=== PATIENT | male | born 1985 | race African-American/Black ===

== ENCOUNTER 2016-10-02 20:23 | Emergency (ER) ==
[2016-10-02] MEDS ORDERED: ZOFRAN IM ONE (20:56)
[2016-10-02] MEDS ORDERED: DILAUDID IM ONE (20:56)
--- NOTE | 2016-10-02 20:59 | PROVIDER DOCUMENTATION ---
HPI-Male Problem - General Chief Complaint: Male Stated Complaint: SKIN DETACHED FROM PENIS Time Seen by Provider: 10/02/16 20:42 Source: patient (Patient is a 31 year old black male with history of htn who accidentally cut his foreskin of his penis when his female partner who was wearing braces performed oral sex just 15 minutes prior to arrival. Last tetanus was over 5 years ago. Patient was cut by partners braces. Patient complains of 8/10 pain over affected area of foreskin. Patient became nauseated and vomited due to pain.) Allergies/Adverse Reactions: Patient Allergies Allergy/AdvReac Type Severity Reaction Status Date / Time Penicillins AdvReac FLUSHING Verified 10/02/16 20:38 Home Medications: Home Medication List Medication Instructions Recorded Confirmed Last Taken Type Clindamycin HCl 300 mg PO TID #30 capsule 10/02/16 Unknown Rx Hydrocodone/APAP 5 mg/325 mg 1 tab PO Q6H PRN PRN #14 tablet 10/02/16 Unknown Rx [Jewett-5] Review of Systems - Adult - REVIEW OF SYSTEMS - ADULT Constitutional: denies: chills, fever Eyes: reports: no symptoms reported Ears, Nose, Mouth & Throat: reports: no symptoms reported Cardiovascular: reports: no symptoms reported Respiratory: reports: no symptoms reported Gastrointestinal: reports: see HPI, nausea, vomiting Genitourinary: reports: see HPI Musculoskeletal: reports: no symptoms reported Integumentary: reports: no symptoms reported Neurological: reports: no symptoms reported Psychiatric: reports: no symptoms reported Endocrine: reports: no symptoms reported Hematologic/Lymphatic: reports: no symptoms reported Allergic/Immunologic: reports: no symptoms reported All Other Systems: Reviewed and Negative Past History - Adult - PAST MEDICAL HISTORY-ADULT Review of Records: reports: Old Records Reviewed, Nursing Assessment Review, Medications Reviewed, Social history reviewed & non-contributory. Major Childhood Illnesses: reports: denies history Cardiovascular: reports: denies history Respiratory: reports: denies history Gastrointestinal: reports: denies history Obstetrical/Gynecological: reports: denies history Genitourinary: reports: denies history Musculoskeletal: reports: denies history Neurological: reports: denies history Psychiatric: reports: anxiety, depression Endocrine/Immune: reports: denies history Other Conditions: reports: denies history - PRIOR SURGERIES/PROCEDURES Surgical/Procedure History: reports: reviewed, not pertinent - PRIOR HOSPITALIZATIONS Prior Hospitalizations: reports: for other non-related - IMMUNIZATION STATUS Childhood Immunizations: See Nurse Assessment Flu Vaccine: See Nurse Assessment - FAMILY HISTORY Family History: reviewed, not pertinent Physical Exam-General - CONSTITUTIONAL General Appearance: alert, moderate distress, other (in pain) - EYES Eyes: other (clear) - HEAD, EARS, NOSE, MOUTH & THROAT HENMT: moist mucous membranes, normal ENT inspection - NECK Neck: supple - RESPIRATORY Respiratory: lungs clear - CARDIOVASCULAR Cardiovascular: regular rate, rhythm - GASTROINTESTINAL (ABDOMEN) Abdominal Exam: non tender, soft - GENITOURINARY Male Genitalia: other (abrasion over distal foreskin at 6 oclock position with skin tag, no active bleeding, no urethral injury) Rectal Exam: deferred - MUSCULOSKELETAL Back Exam: normal inspection Extremity: normal range of motion - SKIN Integumentary: normal color, normal turgor - NEUROLOGIC Neurologic: grossly normal - PSYCHIATRIC Psych/Mental Status: anxious Departure - Departure Time of Disposition Order: 21:30 DIAGNOSIS: Uncontrolled hypertension Injury to scrotum, penis, or foreskin Qualifiers: Encounter type: initial encounter Qualified Code(s): S39.848A - Other specified injuries of external genitals, initial encounter Abrasion of penis, initial encounter Qualifiers: Encounter type: initial encounter Qualified Code(s): S30.812A - Abrasion of penis, initial encounter Disposition: HOME 01 Certified Medical Emergency: Emergent Condition: Stable Additional Instructions: followup with urologist next week, no intercourse until healed,recheck blood pressure this week Prescriptions: Clindamycin HCl 300 mg PO TID #30 capsule Hydrocodone/APAP 5 mg/325 mg [Jewett-5] 1 tab PO Q6H PRN PRN #14 tablet PRN Reason: Pain Referrals: None,PCP [Primary Care Provider] - Garth Hill MD [STAFF PHYSICIAN] -
[2016-10-02] MEDS ORDERED: CLEOCIN PO ONE (21:00)
[2016-10-02] MEDS ORDERED: BOOSTRIX VACCINE IM ONE (21:03)
[2016-10-02] MEDS ORDERED: DILAUDID ONE (21:04)
[2016-10-02] MEDS ORDERED: BOOSTRIX VACCINE ONE (21:05)
[2016-10-02 21:37] VITALS: BP 141/107
== END 2016-10-02 21:35 | disposition home or self-care (01) ==
LOC: P.ED 20:23
DX: S30.812A Abrasion of penis, initial encounter (principal); I10 Essential (primary) hypertension; N48.89 Other specified disorders of penis; R11.2 Nausea with vomiting, unspecified; Z23 Encounter for immunization; W45.8XXA Other foreign body or object entering through skin, initial encounter
CPT/HCPCS: 90471; 90715; 96372; J1170; J2405

== ENCOUNTER 2016-10-25 20:33 | Emergency (ER) ==
[2016-10-25 21:26] LABS: URINE SOURCE CLEAN CATCH
[2016-10-25 21:26] LABS: MANUAL DIFF NEEDED? NO
[2016-10-25 21:30] LABS: BASO% 0.1 % (0.0-0.8); EOS# 0.15 X1000 (0.0-0.7); HEMATOCRIT 44.8 % (42.0-52.0); HEMOGLOBIN 15.7 g/dL (14.0-18.0); IMM GRAN# 0.01 X1000 (0.0-0.04); IMM GRAN% 0.1 % (0.0-0.5); LYMPH# 1.92 X1000 (1.2-3.4); LYMPH% 25.2 % (20.5-51.1); MCH 30.4 PG (27-31); MCV 86.7 FL (81-99); MONO# 0.55 X1000 (0.11-0.59); MONO% 7.2 % (1.7-9.3); MPV 10.6 FL (7.4-10.4); NEUT% 65.4 % (42.2-75.2); PLT 209 X1000 (130-400); RBC 5.17 XMIL (4.7-6.1)
[2016-10-25 21:48] LABS: UR AMPHETAMINES QUAL NONE DETECTED (NONE DETECT); UR BARBITUATES QUAL NONE DETECTED (NONE DETECT); UR BENZODIAZEPIN QUAL NONE DETECTED (NONE DETECT); UR CANNABINOIDS QUAL NONE DETECTED (NONE DETECT); UR COCAINE QUAL NONE DETECTED (NONE DETECT); UR MDMA QUAL NONE DETECTED (NONE DETECT); UR METHADONE QUAL NONE DETECTED (NONE DETECT); UR METHAMPHETAMINE QUAL NONE DETECTED (NONE DETECT); UR OPIATES QUAL NONE DETECTED (NONE DETECT); UR OXYCODONE QUAL NONE DETECTED (NONE DETECT); UR PCP QUAL NONE DETECTED (NONE DETECT); UR TCA QUAL NONE DETECTED (NONE DETECT)
[2016-10-25 21:57] LABS: AGAP 12; ALBUMIN 4.3 g/dL (3.5-5.0); ALKALINE PHOSPHATASE 62 U/L (32-122); BUN 11 mg/dL (8-22); CALCIUM 9.3 mg/dL (8.8-10.2); CHLORIDE 103 mmol/L (98-107); COSMO 280; GOT 41 U/L (10-34); GPT 29 U/L (10-44); SODIUM 140 mmol/L (136-145); TCO2 26 mmol/L (25-35); TOTAL PROTEIN 7.6 g/dL (6.3-8.3)
[2016-10-25 21:58] LABS: ACETAMINOPHEN < 1.2 ug/mL (10-30)
[2016-10-25 21:59] LABS: BILIRUBIN URINE NEGATIVE (NEGATIVE); BLOOD URINE TRACE (NEGATIVE); CLARITY CLEAR (CLEAR); COLOR YELLOW; GLUCOSE URINE NEGATIVE (NEGATIVE); LEUKOCYTES URINE TRACE (NEGATIVE); NITRITE URINE NEGATIVE (NEGATIVE); PH URINE 6.5; PROTEIN URINE 2+(100 mg/dL) mg/dL (NEGATIVE); SP GRAVITY URINE 1.015; UROBILINOGEN URINE NORMAL
--- NOTE | 2016-10-25 21:59 | PROVIDER DOCUMENTATION ---
HPI-Psychological Disorder - General Source: patient - History of Present Illness-Psych Onset/Duration: reports: 3 days ago Timing: reports: still present Severity: reports: moderate Situational problems related to:: reports: other (DEPRESSION) Psychiatric Complaints: reports: depressed, homicidal thoughts, insomnia, irritability, suicidal ideation Substance Use: reports: none presently/history of abuse, alcohol (PRIOR TO MEDICATION HE DRANK DAILY BUT HAS STOPPED ETOH BC IT CAUSES HIM TO VOMIT NOW), marijuana Previous psych related hospitalizations?: No Patient arrived by:: private car Similar Symptoms Previously?: No Recently seen or treated by another doctor?: No - Suicidal Ideation Suicide Risk Assessment: male sex, age <19, depressed, drug or ETOH abuse, no social supports Clinician's estimation of suicide risk?: uncertain risk Suicidal Attempt Method: reports: Other (UNK) <Dianna Feldman - Last Filed: 10/26/16 00:02> <Leonel Campuzano - Last Filed: 10/26/16 00:13> - General Chief Complaint: Psych Stated Complaint: PSYCH EVAL Time Seen by Provider: 10/25/16 21:48 Allergies/Adverse Reactions: Patient Allergies Allergy/AdvReac Type Severity Reaction Status Date / Time Penicillins AdvReac FLUSHING Verified 10/02/16 20:38 Home Medications: Home Medication List Medication Instructions Recorded Confirmed Last Taken Type Fluoxetine HCl [Prozac] 10 mg PO DAILY 10/25/16 10/25/16 Unknown History Fluoxetine HCl [Prozac] 20 mg PO QAM #30 capsule 10/25/16 Unknown Rx Trazodone [Desyrel] 50 mg PO QHS #30 tablet 10/25/16 Unknown Rx - History of Present Illness-Psych Nature of Presenting Problem: PT IS A 31YOM PRESENTING TO THE ED C/O SI AND HI. PT STATES HE STARTED BACK ON PROZAC 10MG APPROXIMATELY 3 WEEKS AGO FOR DEPRESSION. PAST 3 DAYS HE HAS HAD INCREASED INSOMNIA AND SI AND HI WITHOUT ANY REMORSE FOR HIS THOUGHTS. HE STATES "HE FEELS ODD." NO OTHER COMPLAINTS NOTED AT THIS TIME (Dianna Feldman) Review of Systems - Adult - REVIEW OF SYSTEMS - ADULT Constitutional: reports: no symptoms reported Eyes: reports: see HPI, redness. denies: eye pain Ears, Nose, Mouth & Throat: reports: no symptoms reported Cardiovascular: reports: no symptoms reported Respiratory: reports: no symptoms reported Gastrointestinal: reports: no symptoms reported Genitourinary: reports: no symptoms reported Musculoskeletal: reports: no symptoms reported Integumentary: reports: no symptoms reported Neurological: reports: no symptoms reported Psychiatric: reports: see HPI, anti-depressant use, depression, emotional problems, insomnia, suicidal thoughts Endocrine: reports: no symptoms reported Hematologic/Lymphatic: reports: no symptoms reported Allergic/Immunologic: reports: no symptoms reported All Other Systems: Reviewed and Negative <Dianna Feldman - Last Filed: 10/26/16 00:02> Past History - Adult - PAST MEDICAL HISTORY-ADULT Review of Records: reports: Old Records Reviewed, Nursing Assessment Review, Medications Reviewed, Social history reviewed & non-contributory. Major Childhood Illnesses: reports: denies history Cardiovascular: reports: denies history Respiratory: reports: denies history Gastrointestinal: reports: denies history Obstetrical/Gynecological: reports: denies history Genitourinary: reports: denies history Musculoskeletal: reports: denies history Neurological: reports: denies history Psychiatric: reports: anxiety, depression Endocrine/Immune: reports: denies history Other Conditions: reports: denies history - PRIOR SURGERIES/PROCEDURES Surgical/Procedure History: reports: reviewed, not pertinent - PRIOR HOSPITALIZATIONS Prior Hospitalizations: reports: for other non-related - IMMUNIZATION STATUS Childhood Immunizations: See Nurse Assessment Flu Vaccine: See Nurse Assessment - FAMILY HISTORY Family History: reviewed, not pertinent - SOCIAL HISTORY Smoking: denies, non-smoker Substance Use: none presently/history of abuse, alcohol, marijuana Alcohol Use Frequency: once a month Living Situation: alone <Dianna Feldman - Last Filed: 10/26/16 00:02> Physical Exam-Psych Focus - Physical Exam-Psych Initial Vital Signs Reviewed: Yes Appearance: appropriate appearance, neat, alert, moderate distress. negative: appropriate insight, no apparent distress, no memory impairment, denies illness Neurological: alert, calm, cycle consultant II-XII nml as tested, oriented x 3, depressed affect, flat. negative: normal mood/affect Behavior/Eye Contact/Speech: cooperative, good eye contact, normal speech Thoughts/Hallucinations: negative: normal thought pattern, no apparent hallucination, auditory hallucinations, delusions, tactile hallucinations, visual hallucinations HENMT: normocephalic/atraumatic, moist mucous membranes, normal ENT inspection, TMs normal, pharynx normal Neck: non-tender, full range of motion, supple, normal inspection Respiratory: chest non-tender, lungs clear, normal breath sounds, no pleuratic chest pain, no respiratory distress, no accessory muscle use Cardiovascular: normal peripheral pulses, regular rate, rhythm, no edema, no gallop, no JVD, no murmur Abdominal Exam: normal bowel sounds, non tender, soft, no organomegaly, no pulsatile mass Lymphatic: no adenopathy Back Exam: normal inspection, no CVA tenderness, no vertebral tenderness Extremity: normal range of motion, non-tender, normal gait, normal inspection, no pedal edema, no calf tenderness, normal capillary refill, pelvis stable Integumentary: normal color, normal turgor, warm/dry <Dianna Feldman - Last Filed: 10/26/16 00:02> Progress - PSYCHIATRIC Medically clear for psych eval and/or transfer to [facility].: Yes ([facility] ADVISED FOR PT TO SEEK INPATIENT TREATMENT AND PT HAS DECLINED STATING ) <Dianna Feldman - Last Filed: 10/26/16 00:02> <Leonel Campuzano - Last Filed: 10/26/16 00:13> - PLAN OF CARE/RESULTS Progress/Plan/Lab Results: Laboratory Tests 10/25/16 10/25/16 10/25/16 21:12 21:12 21:20 WBC RBC Hgb Hct MCV MCH MCHC RDW Std Deviation Plt Count MPV Immature Gran % (Auto) Neut % (Auto) Lymph % (Auto) [place] % (Auto) Eos % (Auto) Baso % (Auto) Immature Gran # (Auto) Neut # (Auto) Lymph # (Auto) [place] # (Auto) Eos # (Auto) Baso # (Auto) Sodium 140 Potassium 4.0 Chloride 103 Carbon Dioxide 26 Anion Gap 12 BUN 11 Creatinine 1.1 Estimated GFR/1.73 m2 > 60 BUN/Creatinine Ratio 10 Glucose 112 H Calculated Osmolality 280 Calcium 9.3 Total Bilirubin 0.40 AST 41 H ALT 29 Alkaline Phosphatase 62 Total Protein 7.6 Albumin 4.3 Globulin 3.0 Albumin/Globulin Ratio 1.0 TSH Free T4 Urine Source CLEAN CATCH Urine Color YELLOW Urine Clarity CLEAR Urine pH 6.5 Ur Specific [place] 1.015 Urine Protein 2+(100 mg/dL) A Urine Ketones TRACE Urine Blood TRACE Urine Nitrite NEGATIVE Urine Bilirubin NEGATIVE Urine Urobilinogen NORMAL Urine Microscopic RBC <10 Urine WBC TRACE A Urine Microscopic WBC <10 Ur Epithelial Cells <10 Urine Bacteria 2+ Urine Glucose NEGATIVE Salicylates Urine Opiates Screen NONE DETECTED Ur Oxycodone Screen NONE DETECTED Urine Methadone Screen NONE DETECTED Acetaminophen Ur Barbituates Screen NONE DETECTED Ur Tricyclics Screen NONE DETECTED Ur Phencyclidine Scrn NONE DETECTED Ur Amphetamines Screen NONE DETECTED U Methamphetamines Scrn NONE DETECTED Urine MDMA Screen NONE DETECTED U Benzodiazepines Scrn NONE DETECTED Urine Cocaine Screen NONE DETECTED U Cannabinoids Screen NONE DETECTED Plasma/Serum Ethyl Alc 10/25/16 10/25/16 10/25/16 21:20 21:20 21:20 WBC 7.62 RBC 5.17 Hgb 15.7 Hct 44.8 MCV 86.7 MCH 30.4 MCHC 35.0 RDW Std Deviation 14.2 Plt Count 209 MPV 10.6 H Immature Gran % (Auto) 0.1 Neut % (Auto) 65.4 Lymph % (Auto) 25.2 [place] % (Auto) 7.2 Eos % (Auto) 2.0 Baso % (Auto) 0.1 Immature Gran # (Auto) 0.01 Neut # (Auto) 4.98 Lymph # (Auto) 1.92 [place] # (Auto) 0.55 Eos # (Auto) 0.15 Baso # (Auto) 0.01 Sodium Potassium Chloride Carbon Dioxide Anion Gap BUN Creatinine Estimated GFR/1.73 m2 BUN/Creatinine Ratio Glucose Calculated Osmolality Calcium Total Bilirubin AST ALT Alkaline Phosphatase Total Protein Albumin Globulin Albumin/Globulin Ratio TSH 1.79 Free T4 1.08 Urine Source Urine Color Urine Clarity Urine pH Ur Specific [place] Urine Protein Urine Ketones Urine Blood Urine Nitrite Urine Bilirubin Urine Urobilinogen Urine Microscopic RBC Urine WBC Urine Microscopic WBC Ur Epithelial Cells Urine Bacteria Urine Glucose Salicylates Urine Opiates Screen Ur Oxycodone Screen Urine Methadone Screen Acetaminophen Ur Barbituates Screen Ur Tricyclics Screen Ur Phencyclidine Scrn Ur Amphetamines Screen U Methamphetamines Scrn Urine MDMA Screen U Benzodiazepines Scrn Urine Cocaine Screen U Cannabinoids Screen Plasma/Serum Ethyl Alc 10/25/16 21:20 WBC RBC Hgb Hct MCV MCH MCHC RDW Std Deviation Plt Count MPV Immature Gran % (Auto) Neut % (Auto) Lymph % (Auto) [place] % (Auto) Eos % (Auto) Baso % (Auto) Immature Gran # (Auto) Neut # (Auto) Lymph # (Auto) [place] # (Auto) Eos # (Auto) Baso # (Auto) Sodium Potassium Chloride Carbon Dioxide Anion Gap BUN Creatinine Estimated GFR/1.73 m2 BUN/Creatinine Ratio Glucose Calculated Osmolality Calcium Total Bilirubin AST ALT Alkaline Phosphatase Total Protein Albumin Globulin Albumin/Globulin Ratio TSH Free T4 Urine Source Urine Color Urine Clarity Urine pH Ur Specific [place] Urine Protein Urine Ketones Urine Blood Urine Nitrite Urine Bilirubin Urine Urobilinogen Urine Microscopic RBC Urine WBC Urine Microscopic WBC Ur Epithelial Cells Urine Bacteria Urine Glucose Salicylates < 3.00 L Urine Opiates Screen Ur Oxycodone Screen Urine Methadone Screen Acetaminophen < 1.2 L Ur Barbituates Screen Ur Tricyclics Screen Ur Phencyclidine Scrn Ur Amphetamines Screen U Methamphetamines Scrn Urine MDMA Screen U Benzodiazepines Scrn Urine Cocaine Screen U Cannabinoids Screen Plasma/Serum Ethyl Alc Orders Category Date Time Status ACETAMINOPHEN [TDM] Stat Lab 10/25/16 21:20 Completed ALCOHOL BLOOD Stat Lab 10/25/16 21:20 Completed CBC WITH ELECTRONIC DIFF [HEME] Stat Lab 10/25/16 21:20 Completed COMPREHENSIVE METABOLIC PANEL [CHEM] Stat Lab 10/25/16 21:20 Completed FREE T4 Stat Lab 10/25/16 21:20 Results SALICYLATES [TDM] Stat Lab 10/25/16 21:20 Completed TSH Stat Lab 10/25/16 21:[address] W/POSS RFLX CULT [URINALYSIS] Stat Lab 10/25/16 21:12 Completed URINE CULTURE [RM] Routine Lab 10/25/16 22:[address] S[address]EN [address] Stat Lab 10/25/16 21:12 Completed VITAMIN B12 Stat Lab 10/25/16 21:20 Results Trazodone [Desyrel] Med 10/25/16 23:57 Discontinued 50 mg PO NOW ONE EKG [EKG] Stat Ther 10/25/16 21:08 Draft Vital Signs - 24 hr 10/25/16 21:02 Temperature 98.5 F Pulse Rate 107 H Respiratory 20 Rate Blood Pressure 171/100 O2 Sat by Pulse 100 Oximetry (Dianna Feldman) - PSYCHIATRIC Psych patient progress: AT THIS TIME PT STATES HE IS NO LONGER HI OR SI AND IS REFUSING INPATIENT TREATMENT. A FRIEND HAS AGREED TO MONITOR PT FOR ANY CHANGES AT THIS TIME. HE WAS ADVISED TO BRING PT BACK OR CALL EMERGENCY SERVICES IF NEEDED (Dianna Feldman ) Departure - Departure Time of Disposition Order: 00:01 Certified Medical Emergency: Emergent <Dianna Feldman - Last Filed: 10/26/16 00:02> - Departure Time of Disposition Order: 00:00 Certified Medical Emergency: Emergent <TatiannaLeonel KaitlynMark - Last Filed: 10/26/16 00:13> - Departure DIAGNOSIS: Depression Qualifiers: Depression Type: unspecified Qualified Code(s): F32.9 - Major depressive disorder, single episode, unspecified Disposition: HOME 01 Condition: Fair Additional Instructions: FOLLOW UP WITH [facility] ED Follow Up Instructions: You have been treated by a care provider in the Emergency Department. These instructions are being provided to you so you can have an understanding of how to care for yourself upon discharge. Upon discharge from the Emergency Department, you are responsible for making arrangements for follow-up care by a physician of your choice. Take all prescribed medications as directed. Return to the Emergency Department immediately for any new or worsening symptoms. You may call the Physician Referral phone number at [phone] to obtain a list of Physicians who are taking new patients. Prescriptions: Trazodone [Desyrel] 50 mg PO QHS #30 tablet Fluoxetine HCl [Prozac] 20 mg PO QAM #30 capsule Referrals: Jose Barclay MD [Primary Care Provider] - Forms: Return to School/Parent Work Instructions: Trazodone tablets, Suicidal Feelings: How to Help Yourself, Depression, Adult, [id number], Fluoxetine capsules or tablets (Depression/ Mood Disorders) Physician Attestation
[2016-10-25 22:04] LABS: URINE CULTURE PL NEEDED? YES; URINE EPITHELIAL CELLS <10 /HPF (<10); URINE RBC <10 /HPF (<10); URINE WBC <10 /HPF (<10)
[2016-10-25 22:07] LABS: FREE T4 1.08 ng/dL (0.93-1.70)
--- NOTE | 2016-10-25 22:31 | EKG Report ---
Test Performed on : 10/25/2016 10:20:08 PM Test Reason : psych placement Blood Pressure : / mmHG Vent. Rate : 085 BPM Atrial Rate : 085 BPM P-R Int : 154 ms QRS Dur : 100 ms QT Int : 350 ms P-R-T Axes : 067 -12 006 degrees QTc Int : 416 ms Normal sinus rhythm. Normal ECG When compared with ECG of 27-SEP-2011 15:46, No significant change was found Unconfirmed Result
--- NOTE | 2016-10-25 22:57 | ED EKG INTERP ---
EKG Interpretation - EKG Time of EKG reading by physician:: 22:21 EKG Read and Signed by:: Leonel Campuzano EKG Interpretation (*Must complete 3 of following elements*): Normal Rate: 85 Rhythm: NSR [place]: normal QRS: normal Attestation - Scribe Verification/Attestation Scribe:: Dianna Feldman Acting as Scribe for:: Leonel Campuzano Scribe documention review:: This chart was documented by a scribe and accurately reflects the service the provider performed and the decisions made by the provider. Physician Attestation - Physician Attestation I, the provider, attest to the following statement:: Leonel Campuzano Physician documentation Attestation:: This documentation recorded by the scribe accurately reflects the service I personally performed and the decisions made by me.
[2016-10-25] MEDS ORDERED: DESYREL PO ONE (23:57)
[2016-10-26 00:21] VITALS: BP 157/91
== END 2016-10-26 00:18 | disposition home or self-care (01) ==
LOC: P.ED 20:33
DX: F32.9 Major depressive disorder, single episode, unspecified (principal); F41.9 Anxiety disorder, unspecified; Z79.899 Other long term (current) drug therapy
CPT/HCPCS: 80053; 80305; 81001; 82607; 84439; 84443; 85025; 87088; 93005; 99284; G0480; 80320; 80324; 80329